=== PATIENT | male | born 2000 | race Two or more races ===

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

== ENCOUNTER 2019-05-03 22:31 | Emergency (ER) | payer MEDICAID ==
[~2019-05-03] VITALS: Ht 172.7 cm; Wt 79.4 kg
[2019-05-03 22:55] VITALS: Ht 172.7 cm; Wt 79.4 kg
[2019-05-04 02:13] VITALS: BP 121/66
== END 2019-05-04 02:03 | disposition home or self-care (01) ==
LOC: ED 22:31
DX: S63.502A Unspecified sprain of left wrist, initial encounter (principal); K21.9 Gastro-esophageal reflux disease without esophagitis; V00.121A Fall from non-in-line roller-skates, initial encounter; Y93.89 Activity, other specified; Y92.89 Other specified places as the place of occurrence of the external cause; Y99.8 Other external cause status

== ENCOUNTER 2019-05-19 00:08 | Emergency (ER) | payer MEDICAID ==
[~2019-05-19] VITALS: Ht 175.3 cm; Wt 77.8 kg
[2019-05-19 00:12] VITALS: Ht 175.3 cm; Wt 77.8 kg
[2019-05-19 00:47] LABS: BASOPHIL % 0.3 % (0-2); PLATELET COUNT 299 x10^3mcL (130-400); RED CELL DISTRIBUTION WIDTH 12.8 % (11.5-14.5)
[2019-05-19 01:01] LABS: CALCIUM 9.2 mg/dL (8.5-10.1); CARBON DIOXIDE 26.8 mmol/L (21-32); CHLORIDE SERUM 103 mmol/L (98-107); CREATININE SERUM 0.8 mg/dL (0.7-1.3); GFR1 > 60 mL/min; GLUCOSE SERUM 94 mg/dL (74-106); POTASSIUM SERUM 3.7 mmol/L (3.5-5.1); SODIUM SERUM 140 mmol/L (136-145)
[2019-05-19 03:08] VITALS: BP 105/54
== END 2019-05-19 03:08 | disposition home or self-care (01) ==
LOC: ED 00:08
PROVIDERS: Emergency Medicine
DX: R07.89 Other chest pain (principal); F14.10 Cocaine abuse, uncomplicated; K21.9 Gastro-esophageal reflux disease without esophagitis
CPT/HCPCS: 36415; J1885; Q0092

== ENCOUNTER 2020-01-31 20:45 | Emergency (ER) | payer MEDICAID ==
[~2020-01-31] VITALS: Ht 172.7 cm; Wt 79.5 kg
[2020-01-31 21:08] VITALS: Ht 172.7 cm; Wt 79.5 kg
[2020-01-31 23:11] VITALS: BP 124/82
== END 2020-01-31 23:11 | disposition home or self-care (01) ==
LOC: ED 20:45
DX: S01.01XA Laceration without foreign body of scalp, initial encounter (principal); S06.0X9A Concussion with loss of consciousness of unspecified duration, initial encounter; Y04.8XXA Assault by other bodily force, initial encounter; Y93.89 Activity, other specified; Y92.89 Other specified places as the place of occurrence of the external cause; Y99.8 Other external cause status
CPT/HCPCS: 90715; Q0162